=== PATIENT | male | born 1980 | race American Indian/Alaskan Native ===

== ENCOUNTER 2017-11-10 11:16 | Inpatient (IN) | payer BC ==
--- NOTE | 2017-11-10 11:47 | ED PDOC ---
Arrival/HPI - General Chief Complaint: Shortness Of Breath Time Seen by Provider: 11/10/17 11:21 Historian: Patient - History of Present Illness Narrative History of Present Illness (Text): 11/10/17 11:30 37 year old patient, with no significant past medical history, who was sent to the Emergency department by Dr. Foster for further evaluation of X-Ray that was found showing Pneumothorax and shortness of breath for past 2 weeks. Patient went to PMD for pre-op work up before getting a quad tendon repair, when a right sided Pneumothorax was found on chest X-Ray. Patient was sent to Emergency department for further evaluation. Patient has bone caries which is seasonal, but improves with Albuterol. Patient denies and known drug allergies, smoking, or use of any drugs. Patient denies any nausea, vomiting, diarrhea, or any other complaints. Time/Duration: > month (shortness of breath for past 2 weeks, sent in by PMD for further evaluation) Symptom Onset: Sudden Symptom Course: Unchanged Quality: Other Activities at Onset: Light Past Medical History - Provider Review Nursing Documentation Reviewed: Yes - Infectious Disease Hx of Infectious Diseases: None - Past Medical History Past Medical History: No Previous - Pulmonary Hx Asthma: Yes Hx Sleep Apnea: Yes - Psychiatric Hx Substance Use: No - Surgical History Hx Orthopedic Surgery: Yes (KNEE L) Other/Comment: 2-Pelvic floor repairs. - Suicidal Assessment Feels Threatened In Home Enviroment: No Family/Social History - Physician Review Nursing Documentation Reviewed: Yes Family/Social History: No Known Family HX Smoking Status: Never Smoked Hx Alcohol Use: Yes Frequency of alcohol use: Socially Hx Substance Use: No Hx Substance Use Treatment: No Allergies/Home Meds Allergies/Adverse Reactions: Allergies No Known Allergies Allergy (Verified 11/10/17 18:46) Home Medications: Home Meds Medication Instructions Recorded Confirmed traMADol [Ultram] 1 tab PO PRN PRN 11/10/17 11/10/17 Review of Systems - Physician Review All systems were reviewed & negative as marked: Yes - Review of Systems Constitutional: Normal. absent: Fevers Eyes: Normal ENT: Normal Respiratory: SOB (patient notes shortness of breath for past 2 weeks). absent: Normal Cardiovascular: Normal Gastrointestinal: Normal. absent: Diarrhea, Nausea, Vomiting Genitourinary Male: Normal Musculoskeletal: Normal Skin: Normal Neurological: Normal Endocrine: Normal Hemo/Lymphatic: Normal Psychiatric: Normal Physical Exam Vital Signs Reviewed: Yes Vital Signs Temp Pulse Resp BP Pulse Ox 11/10/17 18:10 79 19 98 11/10/17 17:19 98.3 F 77 18 119/66 98 11/10/17 14:00 78 19 117/89 99 11/10/17 12:55 98.2 F 73 19 98 11/10/17 11:35 122/69 11/10/17 11:29 18 97 11/10/17 11:28 98.2 F 78 18 95 Temperature: Afebrile Pulse: Regular Respiratory Rate: Normal Appearance: Positive for: Well-Appearing, Non-Toxic Pain Distress: Mild Mental Status: Positive for: Alert and Oriented X 3 - Systems Exam Head: Present: Atraumatic, Normocephalic Pupils: Present: PERRL Extroacular Muscles: Present: EOMI Conjunctiva: Present: Normal Mouth: Present: Moist Mucous Membranes Neck: Present: Normal Range of Motion Respiratory/Chest: Present: Clear to Auscultation, Good Air Exchange, Other ( slight improvement from yesterday). No: Respiratory Distress, Accessory Muscle Use Cardiovascular: Present: Regular Rate and Rhythm, Normal S1, S2. No: Murmurs Abdomen: No: Tenderness, Distention, Peritoneal Signs Back: Present: Normal Inspection Upper Extremity: Present: Normal Inspection. No: Cyanosis, Edema Lower Extremity: Present: Normal Inspection. No: Edema Neurological: Present: GCS=15, CN II-XII Intact, Speech Normal. No: Gait Normal (issue with left knee, walks with a limp. ) Skin: Present: Warm, Dry, Normal Color. No: Rashes Psychiatric: Present: Alert, Oriented x 3, Normal Insight, Normal Concentration Medical Decision Making ED Course and Treatment: 11/10/17 11:30 Impression: 37 year old patient sent to the Emergency department by PMD for further evaluation of a right sided Pneumothorax that was found when patient went to get general pre-op work up before getting a quad tendon repair, and shortness of breath for past 2 weeks. Differential Diagnosis included but are not limited to: Pneumothorax. Plan: -- Labs -- Type and screen blood bank -- X-Ray of chest, one view -- oxygen, Nasal Cannula 3lpm -- Reassess and disposition Prior Visits: Notes and results from previous visits were reviewed. Progress Notes: 11/10/17 11:30 Will do labs, X-Rays and will consult surgery for patient. 11/10/17 12:[address] Foster, who was updated on the patient. Dr. Foster noted that the patient can be admitted to either Dr. Holland or Dr. Colunga. Chest X-Ray evaluated by radiologist, shows: Dictator : Chad Cerrato MD Report Date : 11/10/2017 13:03:52 FINDINGS: LUNGS: Clear. PLEURA: There is no significant change in the size of the right-sided pneumothorax which was seen on yesterday's preop chest x-ray the edge of the lung is approximately 3 cm from the chest wall. There is no mediastinal shift CARDIOVASCULAR: Normal. OSSEOUS STRUCTURES: No significant abnormalities. VISUALIZED UPPER ABDOMEN: Normal. OTHER FINDINGS: None. IMPRESSION: There is no significant change in the size of the right-sided pneumothorax which was seen on yesterday's preop chest x-ray. EKG: Ordered, reviewed, and independently interpreted the EKG. Rate : 74 BPM Rhythm : NSR Interpretation : Normal axis. No ST-T wave intervals. 11/10/17 13:[address] Joe Harris, who is covering for Dr. Atkins. Dr. Atkins said he is in [place] now, and looked at chest x-ray and says he doesn't think there is any need for pig tail right now, unless patient becomes symptomatic. Dr. Harris said to call surgery so that they can possibly put a chest tube in. 11/10/17 13:32 Spoke to residential worker who is aware of and agrees with plan for chest tube. 11/10/17 15:[address] Zavala who is aware of and agrees with plan. Dr. Zavala accepts case, and wants me to consult Dr. Kendall. - Lab Interpretations Lab Results: 11/10/17 12:05 11/10/17 12:05 Lab Results 11/10/17 12:50: Blood Type Confirm B POSITIVE 11/10/17 12:05: Blood Type B POSITIVE, Antibody Screen Negative, BBK History Checked No verified bt 11/10/17 12:05: Sodium 140, Potassium 3.9, Chloride 103, Carbon Dioxide 28, Anion Gap 13, BUN 18, Creatinine 1.2, Est GFR ( Amer) > 60, Est GFR (Non- Af Amer) > 60, Random Glucose 91, Calcium 9.2, Total Bilirubin 1.0, AST 28, ALT 38, Alkaline Phosphatase 72, Total Protein 7.7, Albumin 4.2, Globulin 3.5, Albumin/Globulin Ratio 1.2 11/10/17 12:05: PT 13.4 H, INR 1.16, APTT 29.4 11/10/17 12:05: WBC 7.9, RBC 4.73, Hgb 13.9 L, Hct 41.4 L, MCV 87.5, MCH 29.4, MCHC 33.6, RDW 13.8, Plt Count 323, MPV 9.7, Gran % 59.1, Lymph % (Auto) 28.9, [place] % (Auto) 6.9 H, Eos % (Auto) 4.6, Baso % (Auto) 0.5, Gran # 4.64, Lymph # ( Auto) 2.3, [place] # (Auto) 0.5, Eos # (Auto) 0.4, Baso # (Auto) 0.04 - RAD Interpretation Radiology Orders: 11/10/17 11:35 CHEST ONE VIEW [RAD] Stat 11/10/17 14:47 CHEST ONE VIEW [RAD] Stat - Medication Orders Current Medication Orders: Acetaminophen (Tylenol 325mg Tab) 650 mg PO Q4 PRN PRN Reason: Pain, Mild (1-3) Docusate Sodium (Colace) 100 mg PO DAILY [facility] Last Admin: 11/12/17 09:24 Dose: 100 mg Enoxaparin Sodium (Lovenox) 60 mg SC DAILY [facility] Last Admin: 11/12/17 10:18 Dose: 60 mg Subcutaneous Administrations Document 11/12/17 10:18 ML (Rec: 11/12/17 10:18 ML [id number]) Injection Site MAR Injection Site Left Arm Charges for Administration # of Subcutaneous Administrations 1 Tramadol HCl (Ultram) 50 mg PO Q6 PRN PRN Reason: Pain, moderate (4-7) Discontinued Medications Diphenhydramine HCl (Benadryl) 25 mg IVP STAT STA Stop: 11/11/17 09:18 Last Admin: 11/11/17 09:42 Dose: 25 mg IVP Administration Document 11/11/17 09:42 RV (Rec: 11/11/17 09:42 RV [id number]) Charges for Administration # of IVP Administrations 1 Enoxaparin Sodium (Lovenox) 60 mg SC DAILY RUIZ PRN Reason: Protocol Last Admin: 11/12/17 10:13 Dose: Morphine Sulfate (Morphine) 8 mg IVP STAT STA Stop: 11/10/17 14:14 Last Admin: 11/10/17 14:26 Dose: 8 mg MAR Pain Assessment Document 11/10/17 14:26 [email or web address] (Rec: 11/10/17 14:27 CAST [id number]) Pain Reassessment Is this a pain reassessment? No Sleep Is patient sleeping during reassessment? No Presence of Pain Presence of Pain Yes Pain Scale Used Pain Scale Used Numeric Location Pain Location Body Site Generalized Description Description Constant Intensity of Pain at present 6 Pain Behavior Facial Grimacing Aggravating Factors Changing Position Alleviating Factors/Management Medication Techniques Alleviating Factors Medication IVP Administration Document 11/10/17 14:26 [email or web address] (Rec: 11/10/17 14:27 [email or web address] [id number]) Charges for Administration # of IVP Administrations 1 Morphine Sulfate (Morphine) 4 mg IVP STAT STA Stop: 11/10/17 14:49 Last Admin: 11/10/17 16:05 Dose: 4 mg MAR Pain Assessment Document 11/10/17 16:05 [email or web address] (Rec: 11/10/17 16:06 CASTS1 [id number]) Pain Reassessment Is this a pain reassessment? No Sleep Is patient sleeping during reassessment? No Presence of Pain Presence of Pain Yes Pain Scale Used Pain Scale Used Numeric Description Description Constant Intensity of Pain at present 7 Pain Behavior Facial Grimacing Aggravating Factors Changing Position Alleviating Factors/Management Medication Techniques Alleviating Factors Medication IVP Administration Document 11/10/17 16:05 [email or web address] (Rec: 11/10/17 16:06 [email or web address] [id number]) Charges for Administration # of IVP Administrations 1 Morphine Sulfate (Morphine) 4 mg IVP Q4H PRN PRN Reason: Pain, severe (8-10) Last Admin: 11/12/17 03:21 Dose: 4 mg MAR Pain Assessment Document 11/12/17 03:21 AJP (Rec: 11/12/17 03:21 [facility] [id number]) Pain Reassessment Is this a pain reassessment? No Sleep Is patient sleeping during reassessment? No Presence of Pain Presence of Pain Yes Pain Scale Used Pain Scale Used Numeric Location Left, Right or Bilateral Right Pain Location Body Site Chest Description Description Constant Intensity of Pain at present 8 IVP Administration Document 11/12/17 03:21 AJP (Rec: 11/12/17 03:21 AJP [id number]) Charges for Administration # of IVP Administrations 1 Re-Assess: MAR Pain Assessment Document 11/12/17 04:21 ML (Rec: 11/12/17 08:53 ML [id number]) Pain Reassessment Is this a pain reassessment? Yes Presence of Pain Presence of Pain No Pneumococcal Polyvalent Vaccine (Pneumovax 23 Vaccine) 0.5 ml IM .ONCE ONE Stop: 11/10/17 22:32 - Scribe Statement The provider has reviewed the documentation as recorded by the Scribe Mary Jacobo All medical record entries made by the Scribe were at my direction and personally dictated by me. I have reviewed the chart and agree that the record accurately reflects my personal performance of the history, physical exam, medical decision making, and the department course for this patient. I have also personally directed, reviewed, and agree with the discharge instructions and disposition. Disposition/Present on Arrival - Present on Arrival Any Indicators Present on Arrival: No History of DVT/PE: No History of Uncontrolled Diabetes: No Urinary Catheter: No History of Decub. Ulcer: No History Surgical Site Infection Following: None - Disposition Have Diagnosis and Disposition been Completed?: Yes Diagnosis: Pneumothorax Disposition: HOSPITALIZED Disposition Time: 15:12 Patient Problems: Current Active Problems Problem Status Onset Pneumothorax Acute Condition: GOOD
[2017-11-10 12:16] LABS: BASO # 0.04 K/mm3 (0.0-2.0); BASO % 0.5 % (0.0-3.0); EOS # 0.4 (0.0-0.7); EOS % 4.6 % (1.5-5.0); GRAN # 4.64 (1.4-6.5); GRAN % 59.1 % (50.0-68.0); HEMOGLOBIN 13.9 g/dL (14.0-18.0); LYMPH # 2.3 (1.2-3.4); LYMPH % 28.9 % (22.0-35.0); MEAN CELL VOLUME 87.5 fl (80.0-105.0); MEAN CORPUSCULAR HEMOGLOBIN 29.4 pg (25.0-35.0); MEAN CORPUSCULAR HGB CONC 33.6 g/dl (31.0-37.0); MEAN PLATELET VOLUME 9.7 fl (7.0-11.0); MONO # 0.5 (0.1-0.6); MONO % 6.9 % (1.0-6.0); RBC 4.73 10^6/uL (3.5-6.1); RED CELL DISTRIBUTION WIDTH 13.8 % (11.5-14.5); WHITE BLOOD COUNT 7.9 10^3/ul (4.5-11.0)
[2017-11-10 12:25] LABS: INR 1.16; PARTIAL THROMBOPLASTIN TIME 29.4 Seconds (25.1-36.5); PROTHROMBIN TIME 13.4 SECONDS (9.4-12.5)
[2017-11-10 12:26] LABS: ALB/GLOB RATIO 1.2 (1.1-1.8); ALBUMIN 4.2 g/dL (3.0-4.8); ALT/SGPT 38 U/L (7-56); AST/SGOT 28 U/L (17-59); BLOOD UREA NITROGEN 18 mg/dL (7-21); CALCIUM 9.2 mg/dL (8.4-10.5); GFR NON-AFRICAN AMERICAN > 60
--- NOTE | 2017-11-10 13:05 | RAD ---
Date of service: 11/10/2017 PROCEDURE: CHEST RADIOGRAPH, 1 VIEW HISTORY: pneumothorax COMPARISON: 11/09/2017 FINDINGS: LUNGS: Clear. PLEURA: There is no significant change in the size of the right-sided pneumothorax which was seen on yesterday's preop chest x-ray the edge of the lung is approximately 3 cm from the chest wall. There is no mediastinal shift CARDIOVASCULAR: Normal. OSSEOUS STRUCTURES: No significant abnormalities. VISUALIZED UPPER ABDOMEN: Normal. OTHER FINDINGS: None. IMPRESSION: There is no significant change in the size of the right-sided pneumothorax which was seen on yesterday's preop chest x-ray
[2017-11-10] MEDS ORDERED: Morphine 4 mg/ml ISec IVP STA (14:48)
--- NOTE | 2017-11-10 15:11 | RAD ---
Date of service: 11/10/2017 PROCEDURE: CHEST RADIOGRAPH, 1 VIEW HISTORY: post chest tube COMPARISON: Earlier study same day FINDINGS: LUNGS: Clear. PLEURA: There is a chest tube on the right side. There is re-expansion of the right lung CARDIOVASCULAR: Normal. OSSEOUS STRUCTURES: No significant abnormalities. VISUALIZED UPPER ABDOMEN: Normal. OTHER FINDINGS: None. IMPRESSION: There is a chest tube on the right side. There is re-expansion of the right lung
--- NOTE | 2017-11-10 15:48 | CP.PCM.CON ---
History of Present Illness - History of Present Illness History of Present Illness: Thoracic Surgery Dr. Vizcaino 37 y/o M w/ PMH of sleep apnea (on CPAP QHS) was sent to ED by his primary physician for pneumothorax found incidentally on pre-op x-ray the day prior. Pt reports undergoing PFT/CPAP testing 2wks ago for sleep apnea, during which pt reports feeling a marsh of air into his lung. Patient c/o wheezing since that time, as well as SOB on exertion, and productive cough. Pt denies CP, F/C, recent illnesses. PMH: SURAJ, childhood asthma Meds: Tramadol NKDA PSHx: left patella repair, pelvic floor repair x2 FHx: grandfather-aortic dissection SHx: 2 cigarettes/week for 20 years, occasional marijuana use, drinks socially Review of Systems - Review of Systems All systems: reviewed and no additional remarkable complaints except (see HPI) Past Patient History - Infectious Disease Hx of Infectious Diseases: None - Past Social History Smoking Status: Never Smoked - PULMONARY Hx Asthma: Yes Hx Sleep Apnea: Yes - PSYCHIATRIC Hx Substance Use: No - SURGICAL HISTORY Hx Orthopedic Surgery: Yes (KNEE L) Other/Comment: 2-Pelvic floor repairs. Meds Allergies/Adverse Reactions: Allergies Allergy/AdvReac Type Severity Reaction Status Date / Time No Known Allergies Allergy Verified 11/10/17 11:33 Physical Exam - Constitutional Appears: Non-toxic, No Acute Distress - Head Exam Head Exam: NORMAL INSPECTION - Eye Exam Eye Exam: Normal appearance - ENT Exam ENT Exam: Mucous Membranes Moist - Respiratory Exam Respiratory Exam: Decreased Breath Sounds (R side), Wheezes, NORMAL BREATHING PATTERN. absent: Accessory Muscle Use - Cardiovascular Exam Cardiovascular Exam: REGULAR RHYTHM. absent: Bradycardia, Tachycardia - GI/Abdominal Exam GI & Abdominal Exam: Soft. absent: Distended, Tenderness - Extremities Exam Extremities exam: Positive for: normal inspection - Neurological Exam Neurological exam: Alert, Oriented x3 - Psychiatric Exam Psychiatric exam: Normal Affect, Normal Mood - Skin Skin Exam: Dry, Intact, Normal Color, Warm Results - Vital Signs Recent Vital Signs: Last Vital Signs Temp 98.2 F 11/10/17 11:28 Pulse 78 11/10/17 11:28 Resp 18 11/10/17 11:29 BP 122/69 11/10/17 11:35 Pulse Ox 97 11/10/17 11:29 - Labs Result Diagrams: 11/10/17 12:05 11/10/17 12:05 Labs: Laboratory Results - last 24 hr 11/10/17 11/10/17 11/10/17 12:05 12:05 12:05 WBC 7.9 RBC 4.73 Hgb 13.9 L Hct 41.4 L MCV 87.5 MCH 29.4 MCHC 33.6 RDW 13.8 Plt Count 323 MPV 9.7 Gran % 59.1 Lymph % (Auto) 28.9 [place] % (Auto) 6.9 H Eos % (Auto) 4.6 Baso % (Auto) 0.5 Gran # 4.64 Lymph # (Auto) 2.3 [place] # (Auto) 0.5 Eos # (Auto) 0.4 Baso # (Auto) 0.04 PT 13.4 H INR 1.16 APTT 29.4 Sodium 140 Potassium 3.9 Chloride 103 Carbon Dioxide 28 Anion Gap 13 BUN 18 Creatinine 1.2 Est GFR ( Amer) > 60 Est GFR (Non-Af Amer) > 60 Random Glucose 91 Calcium 9.2 Total Bilirubin 1.0 AST 28 ALT 38 Alkaline Phosphatase 72 Total Protein 7.7 Albumin 4.2 Globulin 3.5 Albumin/Globulin Ratio 1.2 Blood Type Blood Type Confirm Antibody Screen BBK History Checked 11/10/17 11/10/17 12:05 12:50 WBC RBC Hgb Hct MCV MCH MCHC RDW Plt Count MPV Gran % Lymph % (Auto) [place] % (Auto) Eos % (Auto) Baso % (Auto) Gran # Lymph # (Auto) [place] # (Auto) Eos # (Auto) Baso # (Auto) PT INR APTT Sodium Potassium Chloride Carbon Dioxide Anion Gap BUN Creatinine Est GFR ( Amer) Est GFR (Non-Af Amer) Random Glucose Calcium Total Bilirubin AST ALT Alkaline Phosphatase Total Protein Albumin Globulin Albumin/Globulin Ratio Blood Type B POSITIVE Blood Type Confirm B POSITIVE Antibody Screen Negative BBK History Checked No verified bt - Imaging and Cardiology Chest x-ray Status: Image reviewed by me, Report reviewed by me Assessment & Plan - Assessment and Plan (Free Text) Assessment: 37 y/o M w/ R-sided pneumothorax s/p bedside R chest thoracostomy tube placement - Pain management - maintain chest tube on wall suction of 80mmHg - maintain pleuravac suction on -20mmHg - daily CXR - encourage OOB to chair/IS use Pt discussed w/ Dr. Charis Fleming DO PGY3
--- NOTE | 2017-11-10 16:05 | PCM.PROC ---
Procedures Attestation:: I certify that I have explained the specified Operation(s) or Procedure(s), risks, benefits and reasonable alternatives to the Patient and/or other person responsible. The opportunity was given to ask questions and all questions answered - Chest Tube Chest Tube Location: Mid-Axillary Right Size of Tube (cm): 28 (new zealander) Tube Sutured to Skin: Yes Sterile Dressing Applied: Yes Anesthesia: Lidocaine 1% Volume Anesthetic (mls): 20 Incision Made With: #11 blade Post Procedure: sutured to skin, sterile dressing applied, air occlusive dressing [place] of Air [place]: Yes Tube Drainage: none Amount of Initial Drainage: 0 Post Procedure CXR?: Yes Patient Tolerated Procedure: Yes
--- NOTE | 2017-11-10 17:44 | CARD ---
APPROVED REPORT Date of service: 11/10/2017 EKG Measurement Heart [id number] <Conclusion> Normal sinus rhythm Normal ECG
--- NOTE | 2017-11-10 18:41 | RAD ---
Date of service: 11/10/2017 HISTORY: Right chest tube / PTX COMPARISON: November 10, 2017. Time of the most recent examination: 14:50. FINDINGS: LUNGS: No active pulmonary disease. PLEURA: Stable position of chest tube in the right pleural space. No pneumothorax identified. CARDIOVASCULAR: Cardiomegaly. No evidence of acute, significant cardiovascular disease. OSSEOUS STRUCTURES: No significant abnormalities. VISUALIZED UPPER ABDOMEN: Normal. OTHER FINDINGS: None. IMPRESSION: Stable position of chest tube in the right pleural space. No pneumothorax. No change compared to the prior study.
[2017-11-10] MEDS: Morphine 4 mg/ml ISec IVP PRN ×2 (19:37→23:38)
[2017-11-10] MEDS ORDERED: Pneumococcal 23-Valent Vaccine IM ONE (22:31)
[2017-11-10 22:32] VITALS: BMI 42.6
--- NOTE | 2017-11-10 23:33 | HP ---
HISTORY OF PRESENT ILLNESS: I was called down to the emergency room to admit him to the hospital. He is a 37-year-old man, who was in the process of being worked up for a pre admission testing for a procedure of his left quad surgery and they found a chest x-ray showing a pneumothorax and he has been dealing with this about 2 weeks now. He has been wheezing for 2 weeks. He feels it was from the pulmonary function test when they blew air into his lungs, he felt that that felt weird at that time and he did not make anything of it and since then, he has been kind of wheezing and not feeling well, breathing well. Now, he has pneumothorax. We are going to put a chest tube in. He has a history of asthma. He has a left knee surgery in the past. Two pelvic floor repairs. 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 He is a very big man. FAMILY HISTORY: No known family history. SOCIAL HISTORY: Never smoked. He does drink occasionally socially. No substance abuse. ALLERGIES: NO KNOWN DRUG ALLERGIES. MEDICATIONS: He has taken Ultram before for pain as needed. REVIEW OF SYSTEMS: No acute vision or hearing changes. No fevers. He is short of breath for the past 2 weeks with wheezes from time to time. No chest pain or palpitations. No nausea, vomiting, constipation, diarrhea. No problems urinating. No back pain or leg pains. Skin for the most part that he could tell is intact. Alert and oriented x3. Not sweating. Not anxious or depressed. PHYSICAL EXAMINATION: VITAL SIGNS: He has a 98.2 temp, 78 pulse, 18 respiratory rate, 122/69 blood pressure, 95% O2 sat on room air. GENERAL: He is well appearing, nontoxic at rest. Alert and oriented x3. HEENT: His head is atraumatic, normocephalic. His extraocular muscles are intact. Pupils equal, reactive to light. Throat is moist. NECK: Supple. HEART: Regular rate. Normal S1, S2. LUNGS: Decreased breath sounds bilaterally. Poor respiratory inspiration and decreased right-sided lung inspiration compared to the left. ABDOMEN: Soft, obese, nontender. Positive bowel sounds. No guarding, no rebound, no CVA tenderness. EXTREMITIES: Have no edema bilaterally. NEUROLOGIC: GCS is 15. Cranial nerves II through XII grossly intact. Speech is normal. Gait is off because he has a left knee issue and left thigh issue. SKIN: Warm and dry. PSYCHIATRIC: He is alert and oriented x3. LYMPHATICS: Thyroid midline. No palpable appreciable lymphadenopathy. LABORATORY DATA: He had multiple tests done. Chest x-ray showed a right pneumothorax. He has a 140 sodium, potassium 3.9, BUN 18, creatinine 1.2, GFR is greater than 60, sugar is 91, calcium is 9.2, total bili is 1, AST is 28, ALT is 38, alk phos 72, total protein 7.7, albumin is 4.2, globulin 3.5. INR is 1.16. White count 7.9, hemoglobin 13.9, hematocrit 41.4, platelets of 323. IMPRESSION: He has a consult with Thoracic Surgery and Pulmonology. He is on morphine for pain, Colace, tramadol for pain. He will have a regular diet and will have oxygen and we will see how he does over the next few days. He is here for right-sided pneumothorax. Srinivas Zavala DO
[2017-11-11] MEDS: Morphine 4 mg/ml ISec IVP PRN ×4 (04:33→21:28)
--- NOTE | 2017-11-11 08:07 | CON ---
DATE: 11/11/2017 PULMONARY CONSULTATION REASON FOR PULMONARY CONSULTATION: Right pneumothorax. REFERRING PHYSICIAN: Srinivas Zavala DO. HISTORY OF PRESENT ILLNESS: The patient is a 37-year-old male, with past medical history significant for obstructive sleep apnea (recently tested), obesity, left quadriceps tear, who presents to [facility] with a 2-week history of increasing shortness of breath at rest, dyspnea on exertion and cough. Apparently, the patient did undergo a polysomnogram, as well as pulmonary function testing - both approximately 2 weeks ago. There is no history of sputum production. There is no history of chest pain, coughing up of blood or chest pain - made worse with deep respirations. There is no history of temperatures, chills or infectious exposure. There is no history of night sweats, weight loss or appetite change prior to the above events. No history of calf pains. No history of syncope or diaphoresis. No history of recent travel or trauma. REVIEW OF SYSTEMS: No history of nausea, vomiting, diarrhea. No acute urinary symptoms. No new neurologic complaints. Rest of the review of systems is negative. ALLERGIES: NO KNOWN ALLERGIES. SOCIAL HISTORY: Positive for occasional marijuana usage. No tobacco. No alcohol. FAMILY HISTORY: No inheritable diseases. HOME MEDICATIONS: Include Ultram. PHYSICAL EXAMINATION: GENERAL: The patient appears comfortable this morning. He is not short of breath at rest. VITAL SIGNS: Temperature is 97.9, pulse 72, respirations 18/20, blood pressure 109/74. Oxygen saturation on nasal cannula is 99%. HEENT: Normocephalic, atraumatic. No JVD. CARDIOVASCULAR: Positive S1, S2. No S3 gallop. LUNGS: Decreased breath sounds at the bases. No rhonchi. No wheezing. EXTREMITIES: Mild edema is noted- both lower extremities. No cyanosis or clubbing. Calves are nontender to palpation. GI: Abdomen is soft, nontender and nondistended. Bowel sounds are positive. SKIN: No acute rash. Right chest tube in place. NEUROLOGIC: Limited at the present time. PERTINENT LABORATORY DATA: There was a chest x-ray done on 11/09/2017. A moderate-sized right sided pneumothorax is noted. Chest x-ray was then done yesterday afternoon (status post chest tube) - Chest tube in place. There is resolution of the right pneumothorax. CBC: White count 7.9K, hemoglobin 13.9, hematocrit 41.4, platelets of 323,000. Complete metabolic profile: All values within normal limits. IMPRESSION: 1. Right lung pneumothorax, status post chest tube. 2. Obstructive sleep apnea. 3. Obesity. 4. Mild anemia. PLAN: The patient presents to [facility] with a 2-week history of increasing shortness of breath at rest, dyspnea on exertion and cough. He offers no other pulmonary symptoms. As above, there was a chest x-ray done on 11/09/2017. On that chest x-ray, the patient was noted to have a moderate-sized right pneumothorax. The patient was then instructed to come to the hospital for chest tube insertion. I did review the last chest x-ray done. There is now reexpansion of the right lung. On physical exam, there is no bronchospasm noted. In addition, there is no significant alveolar-arterial gradient. Oxygen saturation on nasal cannula is now 99%. There are several possible etiologies for the spontaneous pneumothorax, both uncommon, but still certainly possible. First of all, the patient is an occasional marijuana user. In marijuana users, the patients breath hold and increase their intrathoracic pressure. This predisposes them to pneumothorax. In addition, the patient did have a pulmonary function test approximately 2 weeks ago . It was after the pulmonary function test-- that the patient did experience the above pulmonary symptoms. Again, there is a small, but definite risk for pneumothorax during pulmonary function testing. The same physiology applies. Clinical status of the patient appears definitely improved - compared to the initial presentation. Again, he is comfortable this morning. There is no significant alveolar-arterial gradient. Chest tube management will be as per Surgery. Their input is noted. I will also follow this patient closely. I will discuss the above with Dr. Zavala. Thank you very much for this pulmonary consultation. Teodoro Kendall MD [facility]
[2017-11-11 08:16] LABS: HEMOGLOBIN 14.1 g/dL (14.0-18.0); MEAN CORPUSCULAR HEMOGLOBIN 29.5 pg (25.0-35.0); MEAN CORPUSCULAR HGB CONC 32.8 g/dl (31.0-37.0); MEAN PLATELET VOLUME 11.2 fl (7.0-11.0); RBC 4.78 10^6/uL (3.5-6.1); RED CELL DISTRIBUTION WIDTH 14.3 % (11.5-14.5); WHITE BLOOD COUNT 9.4 10^3/ul (4.5-11.0)
[2017-11-11 08:43] LABS: ALB/GLOB RATIO 1.4 (1.1-1.8); ALBUMIN 4.2 g/dL (3.0-4.8); ALT/SGPT 35 U/L (7-56); AST/SGOT 21 U/L (17-59); BLOOD UREA NITROGEN 21 mg/dL (7-21); CALCIUM 9.3 mg/dL (8.4-10.5); GFR NON-AFRICAN AMERICAN > 60
[2017-11-11] MEDS ORDERED: DiphenhydrAMINE 50 mg/ml Inj IVP STA (09:17)
--- NOTE | 2017-11-11 11:54 | CP.PCM.PN ---
Subjective - Date & Time of Evaluation Date of Evaluation: 11/11/17 Time of Evaluation: 11:51 - Subjective Subjective: Cardiothoracic Surgery Progress Note for Dr. Vizcaino This 37M was seen and examined this AM at bedside no acute events overnight. Pt denies any SOB, or chest pain however complains of irritation from the chest tube. Chest tube with no air leaks and minimal drainage on suction. Objective - Vital Signs/Intake and Output Vital Signs (last 24 hours): Temp Pulse Resp BP Pulse Ox 97.9 F 72 20 109/74 99 11/11/17 06:00 11/11/17 06:00 11/11/17 06:00 11/11/17 06:00 11/11/17 06:00 Intake and Output: 11/11/17 11/11/17 06:59 18:59 Intake Total 480 Output Total 15 Balance 465 - Medications Medications: Current Medications Acetaminophen (Tylenol 325mg Tab) 650 mg PO Q4 PRN PRN Reason: Pain, Mild (1-3) Docusate Sodium (Colace) 100 mg PO DAILY RUIZ Last Admin: 11/11/17 09:42 Dose: 100 mg Morphine Sulfate (Morphine) 4 mg IVP Q4H PRN PRN Reason: Pain, severe (8-10) Last Admin: 11/11/17 09:47 Dose: 4 mg Tramadol HCl (Ultram) 50 mg PO Q6 PRN PRN Reason: Pain, moderate (4-7) - Labs Labs: 11/11/17 07:00 11/11/17 07:00 PT 13.4 SECONDS (9.4-12.5) H 11/10/17 12:05 INR 1.16 11/10/17 12:05 APTT 29.4 Seconds (25.1-36.5) 11/10/17 12:05 - Constitutional Appears: Non-toxic, No Acute Distress - Head Exam Head Exam: ATRAUMATIC, NORMOCEPHALIC - Eye Exam Eye Exam: EOMI, Normal appearance - ENT Exam ENT Exam: Mucous Membranes Moist - Respiratory Exam Respiratory Exam: NORMAL BREATHING PATTERN - Cardiovascular Exam Cardiovascular Exam: +S1, +S2 - GI/Abdominal Exam GI & Abdominal Exam: Soft. absent: Distended, Firm, Guarding, Rigid, Tenderness - Neurological Exam Neurological Exam: Alert, Awake - Psychiatric Exam Psychiatric exam: Normal Affect, Normal Mood - Skin Skin Exam: Dry, Intact Assessment and Plan - Assessment and Plan (Free Text) Assessment: 37M with spontaneous pneumo CT to suction Daily CXR [place] tomorrow Further recs per Dr. Charis Trujillo PGY3
--- NOTE | 2017-11-11 13:28 | RAD ---
Date of service: 11/11/2017 HISTORY: 2x2 PTX COMPARISON: 11/10/2017 FINDINGS: LUNGS: Right-sided chest tube. No pneumothorax PLEURA: No significant pleural effusion identified, no pneumothorax apparent. CARDIOVASCULAR: Normal. OSSEOUS STRUCTURES: No significant abnormalities. VISUALIZED UPPER ABDOMEN: Normal. OTHER FINDINGS: None. IMPRESSION: Right-sided chest tube with no pneumothorax
--- NOTE | 2017-11-11 16:33 | PN ---
DATE: 11/11/2017 SUBJECTIVE: I saw him resting comfortably in bed. The chest tube is still in place and is draining serosanguineous liquid fair amount at this time, but he is more comfortable. He is breathing better. He ate okay. MEDICATIONS: He is on Benadryl, Colace, morphine, Tylenol, and tramadol. OBJECTIVE: VITAL SIGNS: He has a 97.9 temperature, 72 pulse, 109/74 blood pressure, 20 respiratory rate, 99% O2 sat on room air. HEENT: Head is atraumatic, normocephalic. HEART: Regular rate. LUNGS: Decreased breath sounds, but clear. Clear on the right than when he first came in. ABDOMEN: Soft, morbidly obese, nontender. Positive bowel sounds. EXTREMITIES: No edema. LABORATORY DATA: He has a 138 sodium, potassium 4.7, BUN 21, creatinine 1.2, GFR is greater 60, sugar is 99, calcium 9.3, total bili is 0.8, AST is 21, ALT is 35, alk phos 54, total protein 7.2, albumin is 4.2. He has a 9.4 white count, 14.1 hemoglobin, 43 hematocrit with a 299 platelets. ASSESSMENT AND PLAN: He is being seen by Surgery and Pulmonary. We will continue aggressive treatment and care with the chest tube in suction and was check his labs tomorrow. He is here for pneumothorax on the right side. Srinivas Zavala DO
[2017-11-12] MEDS: Morphine 4 mg/ml ISec IVP PRN (03:21)
[2017-11-12 08:02] LABS: HEMOGLOBIN 13.6 g/dL (14.0-18.0); MEAN CELL VOLUME 90.5 fl (80.0-105.0); MEAN CORPUSCULAR HEMOGLOBIN 28.6 pg (25.0-35.0); MEAN CORPUSCULAR HGB CONC 31.6 g/dl (31.0-37.0); MEAN PLATELET VOLUME 10.3 fl (7.0-11.0); RBC 4.75 10^6/uL (3.5-6.1)
--- NOTE | 2017-11-12 08:12 | PN ---
DATE: 11/12/2017 PULMONARY NOTE DICTATION SUBJECTIVE: The patient appears comfortable this morning. He is not short of breath at rest. PHYSICAL EXAMINATION: VITAL SIGNS: Temperature is 98.7, pulse 79, respirations 18/20, blood pressure 126/87. Oxygen saturation on nasal cannula is 97%. HEENT: Normocephalic, atraumatic. No JVD. CARDIOVASCULAR: Positive S1, S2. No S3 gallop. LUNGS: Decreased breath sounds at the bases. No rhonchi. No wheezing. EXTREMITIES: Mild edema is noted in both lower extremities. There is no cyanosis or clubbing. Calves are nontender to palpation. GI: Abdomen is soft, nontender and nondistended. Bowel sounds are positive. SKIN: No acute rash. Right chest tube in place. NEUROLOGIC: Exam limited at the present time. PERTINENT LABORATORY DATA: Chest x-ray was repeated yesterday and reviewed. There is a right chest tube in place. There is no pneumothorax. IMPRESSION: 1. Right lung pneumothorax, status post chest tube. 2. Obstructive sleep apnea. 3. Obesity. 4. Mild anemia. PLAN: The patient appears comfortable this morning. He is not short of breath at rest. He does state to feeling much better overall. On physical exam, there is no bronchospasm noted. In addition, there is no significant alveolar-arterial gradient. I will continue the patient on frequent incentive spirometry, and have the patient out of bed as much as possible. I did review the chest x-ray as above. The last chest x-ray shows continued reexpansion of the right lung. I would continue with the chest tube management as per Surgery. Inputs are noted. Clinical status of the patient is significantly improved overall. I will discuss the above with Dr. Zavala. Teodoro Kendall MD MTDD
[2017-11-12 08:17] LABS: ALB/GLOB RATIO 1.2 (1.1-1.8); ALBUMIN 4.1 g/dL (3.0-4.8); ALT/SGPT 30 U/L (7-56); AST/SGOT 22 U/L (17-59); BLOOD UREA NITROGEN 19 mg/dL (7-21); GFR NON-AFRICAN AMERICAN > 60
--- NOTE | 2017-11-12 08:36 | CP.PCM.PN ---
Subjective - Date & Time of Evaluation Date of Evaluation: 11/12/17 Time of Evaluation: 07:20 - Subjective Subjective: Cardiothoracic surgery consult for Dr. Vizcaino Pt seen and examined at bedside. Patient had no SOB or increased chest pain with chest tube on water seal yesterday. Objective - Vital Signs/Intake and Output Vital Signs (last 24 hours): Temp Pulse Resp BP Pulse Ox 98.7 F 79 22 126/87 97 11/12/17 06:00 11/12/17 06:00 11/12/17 06:00 11/12/17 06:00 11/12/17 06:00 Intake and Output: 11/12/17 11/12/17 06:59 18:59 Output Total 1390 Balance -1390 - Medications Medications: Current Medications Acetaminophen (Tylenol 325mg Tab) 650 mg PO Q4 PRN PRN Reason: Pain, Mild (1-3) Docusate Sodium (Colace) 100 mg PO DAILY RUZI Last Admin: 11/11/17 09:42 Dose: 100 mg Morphine Sulfate (Morphine) 4 mg IVP Q4H PRN PRN Reason: Pain, severe (8-10) Last Admin: 11/12/17 03:21 Dose: 4 mg Tramadol HCl (Ultram) 50 mg PO Q6 PRN PRN Reason: Pain, moderate (4-7) - Labs Labs: 11/12/17 07:00 11/12/17 07:00 PT 13.4 SECONDS (9.4-12.5) H 11/10/17 12:05 INR 1.16 11/10/17 12:05 APTT 29.4 Seconds (25.1-36.5) 11/10/17 12:05 - Constitutional Appears: Well, Non-toxic, No Acute Distress - Head Exam Head Exam: ATRAUMATIC, NORMOCEPHALIC - Eye Exam Eye Exam: Normal appearance. absent: Conjunctival injection, Scleral icterus - ENT Exam ENT Exam: Mucous Membranes Moist, Normal Oropharynx - Respiratory Exam Respiratory Exam: NORMAL BREATHING PATTERN. absent: Accessory Muscle Use, Respiratory Distress Additional comments: chest tube on water seal inserted in the right chest, serosanguinous fluid output with no leak, dressing c/D/I - Cardiovascular Exam Cardiovascular Exam: RRR - GI/Abdominal Exam GI & Abdominal Exam: Soft. absent: Distended - Extremities Exam Extremities Exam: absent: Calf Tenderness, Pedal Edema, Tenderness - Neurological Exam Neurological Exam: Alert, Awake, Oriented x3 - Psychiatric Exam Psychiatric exam: Normal Affect, Normal Mood - Skin Skin Exam: Dry, Normal Color, Warm Assessment and Plan - Assessment and Plan (Free Text) Assessment: CT of the chest to evaluate for possible blebs or other cause of the pneumothorax F/U daily CXR's If CT is wnl, will consider discontinuing the chest tube today Continue to encourage ambulation, insentive spirometer use, and monitor chest tube output Discussed with Dr. Charis Slaughter, PGY2
[2017-11-12] MEDS ORDERED: Enoxaparin 60 mg Syringe SC SCH (10:00)
[2017-11-12] MEDS ORDERED: Enoxaparin 40 mg Syringe SC SCH ×2 (10:00)
--- NOTE | 2017-11-12 10:18 | RAD ---
Date of service: 11/12/2017 HISTORY: 2x2 PTX COMPARISON: 11/11/2017 FINDINGS: LUNGS: No active pulmonary disease. PLEURA: Right-sided chest tube in place. Tiny right apical pneumothorax CARDIOVASCULAR: Normal. OSSEOUS STRUCTURES: No significant abnormalities. VISUALIZED UPPER ABDOMEN: Normal. OTHER FINDINGS: None. IMPRESSION: Right-sided chest tube in place. Tiny right apical pneumothorax
--- NOTE | 2017-11-12 10:45 | PN ---
DATE: 11/12/2017 SUBJECTIVE: He was sitting out of bed to chair today, which is very good. He still has the chest tube in, in the right lung. It is still draining maybe us mention less drainage in the day before which is good. He is comfortable. He is using the breathing toy to assess the spirometry. He is not short of breath. He tells me he is feeling better breathing. He has a right lung pneumothorax with chest tube, sleep apnea, obesity and mild anemia. He is being seen by Surgery and Pulmonary and there is a consult for Thoracic Surgery to see him. OBJECTIVE: VITAL SIGNS: He has a 98.7 temperature, 79 pulse, 126/87 blood pressure, 22 respiratory rate, 98% O2 sat on room air. HEENT: Head is atraumatic, normocephalic. HEART: Regular rate. LUNGS: Decreased breath sounds, but clear to auscultation bilaterally. No wheezes, rhonchi or rales. ABDOMEN: Soft, obese, nontender. EXTREMITIES: Trace edema. DATA: He has a 140 sodium, potassium 4.3, BUN 19, creatinine 0.3. GFR is greater than 60. Sugar is 104, calcium is 9, total bili is 0.8, AST is 22, ALT is 30, alk phos 55, total protein 7.6, albumin is 4.1. White count is 9, hemoglobin 13.6, hematocrit 43, platelets of 292. He is being seen by Surgery and Pulmonary. Await thoracic surgeon to see him. We will check his labs tomorrow and hopefully in the next 24 to 36 hours, we will get that chest tube out, may be get him on his way if he continues to improve like this, I am hoping. Srinivas Zavala DO
[2017-11-12] MEDS ORDERED: Iohexol 350 MG/100 ML VIAL ONE (13:25)
--- NOTE | 2017-11-12 14:28 | CT ---
Date of service: 11/12/2017 PROCEDURE: CT Chest with contrast HISTORY: right pneumothorax s/p chest tube insertion COMPARISON: Recent chest films TECHNIQUE: Contiguous axial images were obtained through the chest with intravenous contrast enhancement. Sagittal and coronal reconstructions were performed. IV contrast: 100 cc of Omni [address] exam was performed using one or more of the following dose reduction techniques: Automated exposure control, adjustment of the mA and/or kV according to patient size, and/or use of iterative reconstruction technique. Radiation dose (DLP): 867 mGy-cm. FINDINGS: LUNGS: Clear lungs. Visualized airway clear. A chest tube can be seen in the right mid chest extending along the fissure. There is no significant pneumothorax. There are no bulla identified. MEDIASTINUM: Unremarkable thoracic aorta. No aneurysm or dissection. Normal sized heart. Main pulmonary artery unremarkable. No vascular congestion. No lymphadenopathy. PLEURA: No pleural fluid. No pneumothorax. BONES: No fracture. No destructive lesion. UPPER ABDOMEN: Grossly unremarkable. OTHER FINDINGS: None. IMPRESSION: A chest tube can be seen in the right mid chest extending along the fissure. There is no significant pneumothorax. There are no bulla identified.
[2017-11-12 16:34] VITALS: BP 114/70; PULSE 91; RESP 21; TEMP 98; O2SAT 96
--- NOTE | 2017-11-13 08:53 | RAD ---
Date of service: 11/12/2017 HISTORY: re-eval right pneumothorax s/p chest tube removal COMPARISON: 11/12/2017. FINDINGS: LUNGS: The lungs are well inflated. There is left basilar atelectasis. PLEURA: No significant pleural effusion identified, no pneumothorax apparent. CARDIOVASCULAR: Normal. OSSEOUS STRUCTURES: No significant abnormalities. VISUALIZED UPPER ABDOMEN: Normal. OTHER FINDINGS: None. IMPRESSION: No acute findings.
== END 2017-11-12 21:50 | disposition home or self-care (01) | DRG 200 ==
LOC: ED 11:16 → ERH 15:12 → 3RNO 18:37
PROVIDERS: ADMIT Family Medicine; ATTEND Family Medicine
PROC: 0W9930Z Drainage of Right Pleural Cavity with Drainage Device, Percutaneous Approach (ICD-10-PCS; principal; 2017-11-10)
PROC: 5A09357 Assistance with Respiratory Ventilation, Less than 24 Consecutive Hours, Continuous Positive Airway Pressure (ICD-10-PCS; 2017-11-10)
PROC: 0BPQX0Z Removal of Drainage Device from Pleura, External Approach (ICD-10-PCS; 2017-11-12)
DX: J93.9 Pneumothorax, unspecified (principal); Z68.41 Body mass index [BMI] 40.0-44.9, adult; D64.9 Anemia, unspecified; G47.33 Obstructive sleep apnea (adult) (pediatric); E66.9 Obesity, unspecified; J45.909 Unspecified asthma, uncomplicated; F12.90 Cannabis use, unspecified, uncomplicated